=== PATIENT | female | born 2000 | race Caucasian/White ===

== ENCOUNTER 2018-06-22 09:55 | Emergency (ER) | payer OTHER ==
[~2018-06-22] VITALS: Ht 157.5 cm; Wt 63.2 kg
[2018-06-22 10:01] VITALS: TEMP 98.2
[2018-06-22 10:48] VITALS: BP 115/72; PULSE 71
== END 2018-06-22 10:48 | disposition home or self-care (01) ==
LOC: COL.ER 09:55
DX: R11.2 Nausea with vomiting, unspecified (principal)